=== PATIENT | female | born 1980 | race Caucasian/White ===

== ENCOUNTER 2019-06-03 05:41 | Inpatient (IN) | payer OTHER ==
[~2019-06-03] VITALS: Ht 160 cm; Wt 72.6 kg
[2019-06-03] MEDS ORDERED: SYNTHROID88 MCG PO (07:37)
[2019-06-03] MEDS ORDERED: ZYRTEC10 M3 PO (07:37)
[2019-06-03] MEDS ORDERED: PRENATAL TABLE1 EAC1 PO (07:38)
[2019-06-05] MEDS ORDERED: NIFE60TA3 PO (12:18)
[2019-06-05] MEDS ORDERED: FUSION PLUS CA1 EACH PO (12:18)
[2019-06-05] MEDS ORDERED: IBU400 MG PO (12:18)
[2019-06-05] MEDS ORDERED: KEFLEX500 MG PO (12:19)
== END 2019-06-05 13:01 | disposition home or self-care (01) | DRG 807 ==
LOC: SURG-SUITE 05:41 → LDR 05:41 → SURG-SUITE 16:17
PROVIDERS: ADMIT Specialist
PROC: 10E0XZZ Delivery of Products of Conception, External Approach (ICD-10-PCS; principal; 2019-06-03)
PROC: 0KQM0ZZ Repair Perineum Muscle, Open Approach (ICD-10-PCS; 2019-06-03)
PROC: 4A1HXCZ Monitoring of Products of Conception, Cardiac Rate, External Approach (ICD-10-PCS; 2019-06-03)
PROC: 4A033R1 Measurement of Arterial Saturation, Peripheral, Percutaneous Approach (ICD-10-PCS; 2019-06-03)
DX: O70.1 Second degree perineal laceration during delivery (principal); Z37.0 Single live birth; Z3A.39 39 weeks gestation of pregnancy